=== PATIENT | male | born 1950 | race Asian ===

== ENCOUNTER 2023-04-24 13:22 | Emergency (ER) | payer MEDICARE ==
[~2023-04-24] VITALS: Ht 175.3 cm; Wt 68.0 kg
[2023-04-24 13:37] VITALS: BP_SYST 115; PULSE 158; RESP 22; TEMP 98.3; O2SAT 98
[2023-04-24] MEDS ORDERED: ASPIRIN 81 MG TAB.CHEW PO ONE (14:15)
[2023-04-24] MEDS ORDERED: NACL 0.9% 1,000 ML IV ONE (14:15)
[2023-04-24] MEDS ORDERED: ADENOSINE 6MG/2ML VIAL IVP ONE ×2 (14:30→15:00)
[2023-04-24] MEDS ORDERED: ADENOSINE 6MG/2ML VIAL ONE (14:46)
[2023-04-24 14:54] LABS: EOSINOPHILS % (AUTO) 0.2 % (0.0-4.0); HEMOGLOBIN 17.3 g/dL (14.0-18.0); LYMPHOCYTES # (AUTO) 0.6 K/uL (1.0-5.5); MEAN CORPUSCULAR HEMOGLOBIN 31 pg (27-31); MONOCYTES # (AUTO) 0.4 K/uL (0.0-1.0); MONOCYTES % (AUTO) 4.3 % (1.7-9.3)
[2023-04-24 14:59] LABS: ANION GAP 8 (5-15); CALCIUM 8.8 mg/dL (8.4-11.0); CARBON DIOXIDE 26 mmol/L (23-29); CHLORIDE 103 mmol/L (98-107); CREATININE 1.47 mg/dL (0.55-1.30); GLUCOSE 122 mg/dL (74-106); POTASSIUM 4.1 mmol/L (3.5-5.1); SODIUM SERUM 137 mmol/L (136-145); UREA NITROGEN, BLOOD 20 mg/dL (8-21)
[2023-04-24] MEDS ORDERED: METOPROLOL TARTRATE 5 MG/5 ML VIAL IVP ONE (15:00)
[2023-04-24] MEDS ORDERED: METOPROLOL TARTRATE 25 MG TABLET PO ONE (15:00)
[2023-04-24 15:10] LABS: BASOPHILS % (AUTO) 0.2 % (0.0-2.0); HEMATOCRIT 51.9 % (36-54); LYMPHOCYTES % (AUTO) 6.9 % (20.5-51.5); MEAN CORPUSCULAR HGB CONC 33 % (32-36); MEAN CORPUSCULAR VOLUME 92 fL (79.0-98.0); NEUTROPHILS # (AUTO) 7.5 K/uL (1.8-7.7); NEUTROPHILS % (AUTO) 88.4 % (40.0-70.0); PLATELET COUNT (AUTO) 192 K/uL (130-430); RED BLOOD CELL COUNT(AUTO) 5.64 MIL/uL (4.2-6.2); RED CELL DISTRIBUTION WIDTH 13.9 % (9.0-15.0); WHITE BLOOD COUNT (AUTO) 8.5 K/uL (4.8-10.8)
[2023-04-24 15:12] LABS: ALANINE AMINOTRANSFERASE 30 U/L (12-78); ALBUMIN 3.8 g/dL (3.4-4.8); ASPARTATE AMINOTRANSFERASE 18 U/L (10-37); FREE T4 (FREE THYROXINE) 1.2 ng/dL (0.6-1.6); THYROID STIMULATING HORMONE 0.31 uIu/mL (0.34-4.82); TOTAL BILIRUBIN 0.9 mg/dL (0.0-1.0)
[2023-04-24] MEDS ORDERED: TAMS-11 PO (15:22)
[2023-04-24 15:28] LABS: INFLUENZA TYPE A negative (NEGATIVE); INFLUENZA TYPE B NEGATIVE (NEGATIVE)
[2023-04-24 17:54] VITALS: BP_SYST 133; PULSE 79; RESP 18; TEMP 97.8; O2SAT 98
== END 2023-04-24 17:54 | disposition short-term general hospital (02) ==
LOC: SED 13:22
DX: I49.9 Cardiac arrhythmia, unspecified (principal); R06.02 Shortness of breath; R00.2 Palpitations; Z79.899 Other long term (current) drug therapy; Z20.822 Contact with and (suspected) exposure to COVID-19
CPT/HCPCS: 99291; 96374; 71045; 96361; 96375; 87426; 80053; 83880; 84439; 84443; 85025; 85379; 84484; 36415; 93005; 99292; 87804 ×2; J0153; J3490; J7030